=== PATIENT | female | born 1995 | race Caucasian/White ===

== ENCOUNTER → 2020-09-27 | Outpatient (REF) | payer BC | LOC: M LAB REF 12:12 | PROVIDERS: ATTEND Physician Assistant | DX: N39.0 Urinary tract infection, site not specified (principal) ==

== ENCOUNTER → 2020-10-12 | Outpatient (CLI) | payer BC | LOC: M LAB 15:36 | PROVIDERS: ATTEND Student in an Organized Health Care Education/Training Program | DX: K51.211 Ulcerative (chronic) proctitis with rectal bleeding (principal) ==

== ENCOUNTER → 2020-10-13 | Outpatient (REF) | payer BC | LOC: M LAB REF 12:02 | PROVIDERS: ATTEND Student in an Organized Health Care Education/Training Program | DX: K51.211 Ulcerative (chronic) proctitis with rectal bleeding (principal) ==

== ENCOUNTER → 2021-04-21 | Outpatient (REF) | payer BC | LOC: M LAB REF 09:33 | PROVIDERS: ATTEND Student in an Organized Health Care Education/Training Program | DX: K50.10 Crohn's disease of large intestine without complications (principal); R31.9 Hematuria, unspecified ==

== ENCOUNTER → 2021-04-27 | Outpatient (CLI) | payer BC ==
[2021-04-27 11:18] LABS: BASO # 0.1 10^3/uL (0.0-0.2); BASO % 0.8 % (0.0-1.0); EOS # 0.1 10^3/uL (0.0-0.5); EOS % 1.5 % (0.0-3.0); LYMPH # 2.3 10^3/uL (1.5-5.0); LYMPH % 26.8 % (24.0-44.0); MEAN CORPUSCULAR HEMOGLOBIN 30.2 pg (27.0-33.0); MEAN CORPUSCULAR HGB CONC 33.3 g/dl (32.0-36.5); MEAN CORPUSCULAR VOLUME 90.7 fl (80.0-96.0); MONO # 0.9 10^3/uL (0.0-0.8); NEUTROPHILS # 5.1 10^3/uL (1.5-8.5); NEUTROPHILS % 59.6 % (36.0-66.0); PLATELET COUNT, AUTOMATED 239 10^3/uL (150-450); WHITE BLOOD COUNT 8.6 10^3/uL (4.0-10.0)
[2021-04-27 11:40] LABS: APPEARANCE, URINE CLEAR (CLEAR); BACTERIA, URINE AUTO 2+ (NEGATIVE); BILIRUBIN, URINE AUTO NEGATIVE (NEGATIVE); BLOOD, URINE BLOOD NEGATIVE (NEGATIVE); COLOR, URINE STRAW (YELLOW); GLUCOSE, URINE (UA) AUTO NEGATIVE (NEGATIVE); KETONE, URINE AUTO NEGATIVE (NEGATIVE); LEUKOCYTE ESTERASE, URINE AUTO NEGATIVE (NEGATIVE); NITRITE, URINE AUTO NEGATIVE (NEGATIVE); PROTEIN, URINE AUTO NEGATIVE (NEGATIVE); RBC, URINE AUTO 1 /HPF (0-3); SPECIFIC GRAVITY URINE AUTO 1.005 (1.002-1.035); SQUAMOUS EPITHELIAL CELL UR AU 2 /HPF (0-6); UROBILINOGEN, URINE AUTO 0.2 mg/dL (0.0-2.0); WBC, URINE AUTO 1 /HPF (0-3)
[2021-04-27 11:43] LABS: ERYTHROCYTE SEDIMENTATION RATE 1 mm/hr (0-20)
[2021-04-27 11:44] LABS: ALBUMIN 3.5 GM/DL (3.2-5.2); ALT/SGPT 22 U/L (12-78); BILIRUBIN,DIRECT 0.2 MG/DL (0.0-0.2); BILIRUBIN,TOTAL 0.5 MG/DL (0.2-1.0); BLOOD UREA NITROGEN 9 MG/DL (7-18); C REACTIVE PROTEIN QUANTITATIV < 0.30 MG/DL (0.00-0.30); CREATININE FOR GFR 0.86 MG/DL (0.55-1.30); FERRITIN 11 NG/ML (8-252); GLOMERULAR FILTRATION RATE > 60.0 (>60); IRON (FE) 104 UG/DL (50-170); PERCENT SATURATION 29.3 % (13.2-45.0); THYROID STIMULATING HORMONE 0.652 uIU/ML (0.358-3.740); TOTAL IRON BINDING CAPACITY 355 UG/DL (250-450); TOTAL PROTEIN 6.6 GM/DL (6.4-8.2)
[2021-04-27 11:45] LABS: TOTAL 25(OH) VITAMIN D 44.2 NG/ML (30.0-100.0); VITAMIN B12 LEVEL 506 PG/ML (247-911)
== END ==
LOC: M LAB 10:15
PROVIDERS: ATTEND Student in an Organized Health Care Education/Training Program
DX: K50.10 Crohn's disease of large intestine without complications (principal); K62.5 Hemorrhage of anus and rectum

== ENCOUNTER → 2021-05-19 | Outpatient (CLI) | payer BC ==
[~2021-05-19] MED LIST: GASTROGRAFIN SOLUTION 30ML (Q9963) As Ordered ONE; ISOVUE-370 76% 100ML VIAL As Ordered ONE
[2021-05-19 10:55] LABS: HEMATOCRIT 38.9 % (36.0-47.0); HEMOGLOBIN 12.9 g/dl (12.0-15.5); MEAN CORPUSCULAR HEMOGLOBIN 30.4 pg (27.0-33.0); MEAN CORPUSCULAR VOLUME 91.5 fl (80.0-96.0); RED BLOOD COUNT 4.25 10^6/uL (4.00-5.40); WHITE BLOOD COUNT 6.6 10^3/uL (4.0-10.0)
[2021-05-19 10:56] LABS: BASO # 0.1 10^3/uL (0.0-0.2); BASO % 1.1 % (0.0-1.0); EOS # 0.1 10^3/uL (0.0-0.5); EOS % 1.8 % (0.0-3.0); LYMPH % 30.2 % (24.0-44.0); MEAN CORPUSCULAR HGB CONC 33.2 g/dl (32.0-36.5); MONO # 0.7 10^3/uL (0.0-0.8); MONO % 10.9 % (2.0-8.0); NEUTROPHILS # 3.7 10^3/uL (1.5-8.5); NEUTROPHILS % 55.7 % (36.0-66.0); PLATELET COUNT, AUTOMATED 252 10^3/uL (150-450)
[2021-05-19 11:41] LABS: ERYTHROCYTE SEDIMENTATION RATE 3 mm/hr (0-20)
--- NOTE | 2021-05-19 12:48 | REP ---
INDICATION: RECTAL BLEEDING, LOWER ABD PAIN *LABS 1ST, CT 2ND*. COMPARISON: None. TECHNIQUE: Helical scanning is acquired and 3 mm axial images re-formatted. Coronal and sagittal MPR images are generated. The CT contrast enhancement dose is 100 mL of intravenous Isovue 370. Oral contrast was also administered. FINDINGS: Preliminary digital grounding engineer radiograph is noncontributory. The lung bases are clear on axial CT images. There is no evidence of pleural effusion or upper abdominal ascites. The liver and the spleen are normal in size homogeneous in texture. Normal adrenal glands are observed bilaterally. No abnormality is noted in the pancreas or the gallbladder. The kidneys enhance symmetrically and are morphologically intact. No retroperitoneal mass or adenopathy is seen. Small and large bowel loops are noted to be well opacified with a ingested contrast material and unremarkable. No obstructive lesion is seen. No mass or mural thickening is observed. A normal appear filled appendix is seen along the right pelvic sidewall. No uterine or ovarian abnormality is seen. A small quantity of physiologic fluid is seen in the cul-de-sac. Urinary bladder is unremarkable. No abdominal wall defect is seen. Bone window settings show no bony destructive lesion. IMPRESSION: Normal CT study of the abdomen and pelvis with IV and oral contrast. Normal appendix seen. <Electronically signed by Mitchel Cotton > 05/19/21 [id number]
== END ==
LOC: M RAD 10:13 → M LAB 10:13
PROVIDERS: ATTEND Nurse Practitioner Family
DX: K62.5 Hemorrhage of anus and rectum (principal); R10.30 Lower abdominal pain, unspecified; K50.10 Crohn's disease of large intestine without complications
CPT/HCPCS: 36415; 74177; 85025; 85652; 86140; Q9963; Q9967

== ENCOUNTER → 2021-08-30 | Outpatient (REF) | payer OTHER | LOC: M LAB REF 12:13 | PROVIDERS: ATTEND Student in an Organized Health Care Education/Training Program | DX: K50.10 Crohn's disease of large intestine without complications (principal); K62.5 Hemorrhage of anus and rectum ==

== ENCOUNTER → 2021-10-06 | Outpatient (REF) | payer OTHER ==
[2021-10-06 17:27] LABS: APPEARANCE, URINE CLEAR (CLEAR); BACTERIA, URINE AUTO NEGATIVE (NEGATIVE); BILIRUBIN, URINE AUTO NEGATIVE (NEGATIVE); BLOOD, URINE BLOOD NEGATIVE (NEGATIVE); COLOR, URINE YELLOW (YELLOW); GLUCOSE, URINE (UA) AUTO NEGATIVE (NEGATIVE); KETONE, URINE AUTO NEGATIVE (NEGATIVE); LEUKOCYTE ESTERASE, URINE AUTO NEGATIVE (NEGATIVE); NITRITE, URINE AUTO NEGATIVE (NEGATIVE); PROTEIN, URINE AUTO NEGATIVE (NEGATIVE); RBC, URINE AUTO 0 /HPF (0-3); SPECIFIC GRAVITY URINE AUTO 1.012 (1.002-1.035); SQUAMOUS EPITHELIAL CELL UR AU 0 /HPF (0-6); UROBILINOGEN, URINE AUTO 0.2 mg/dL (0.0-2.0); WBC, URINE AUTO 0 /HPF (0-3)
== END ==
LOC: M LAB REF 16:30
PROVIDERS: ATTEND Physician Assistant
DX: R30.0 Dysuria (principal)

== ENCOUNTER → 2022-01-22 | Outpatient (CLI) | payer OTHER ==
[2022-01-22 15:09] LABS: BASO # 0.1 10^3/uL (0.0-0.2); BASO % 0.8 % (0.0-1.0); EOS # 0.1 10^3/uL (0.0-0.5); EOS % 1.3 % (0.0-3.0); HEMATOCRIT 40.5 % (36.0-47.0); HEMOGLOBIN 13.4 g/dl (12.0-15.5); LYMPH # 3.1 10^3/uL (1.5-5.0); LYMPH % 32.9 % (24.0-44.0); MEAN CORPUSCULAR HEMOGLOBIN 29.8 pg (27.0-33.0); MEAN CORPUSCULAR HGB CONC 33.1 g/dl (32.0-36.5); MONO # 0.9 10^3/uL (0.0-0.8); MONO % 9.4 % (2.0-8.0); NEUTROPHILS # 5.2 10^3/uL (1.5-8.5); NEUTROPHILS % 55.4 % (36.0-66.0); PLATELET COUNT, AUTOMATED 244 10^3/uL (150-450); WHITE BLOOD COUNT 9.3 10^3/uL (4.0-10.0)
[2022-01-22 15:41] LABS: ALBUMIN 4.1 GM/DL (3.2-5.2); ALT/SGPT 28 U/L (12-78); BILIRUBIN,DIRECT 0.1 MG/DL (0.0-0.2); BILIRUBIN,TOTAL 0.4 MG/DL (0.2-1.0); C REACTIVE PROTEIN QUANTITATIV < 0.30 MG/DL (0.00-0.30); FERRITIN 18 NG/ML (8-252); IRON (FE) 104 UG/DL (50-170); TOTAL PROTEIN 7.2 GM/DL (6.4-8.2)
[2022-01-22 15:44] LABS: TOTAL 25(OH) VITAMIN D 55.6 NG/ML (30.0-100.0)
[2022-01-22 15:45] LABS: ERYTHROCYTE SEDIMENTATION RATE 4 mm/hr (0-20); HEPATITIS B SURFACE ANTIBODY NEGATIVE (POSITIVE); VITAMIN B12 LEVEL 481 PG/ML (247-911)
[2022-01-22 15:55] LABS: HEPATITIS B SURFACE ANTIGEN NEGATIVE (NEGATIVE)
[2022-01-22 16:23] LABS: HEPATITIS C VIRUS ABY INDEX 0.2 INDEX (<0.8)
== END ==
LOC: M LAB 14:11
PROVIDERS: ATTEND Student in an Organized Health Care Education/Training Program
DX: K50.10 Crohn's disease of large intestine without complications (principal)

== ENCOUNTER → 2022-01-26 | Outpatient (REF) | payer OTHER | LOC: M LAB REF 09:42 | PROVIDERS: ATTEND Student in an Organized Health Care Education/Training Program | DX: K50.10 Crohn's disease of large intestine without complications (principal) ==

== ENCOUNTER 2022-03-11 11:08 | Emergency (ER) | payer OTHER ==
[~2022-03-11] VITALS: Ht 162.6 cm; Wt 60.1 kg
[2022-03-11] MEDS ORDERED: MESA1000 PR (11:15)
[2022-03-11] MEDS ORDERED: MESA400C2 PO (11:15)
[2022-03-11 12:01] LABS: BASO # 0.1 10^3/uL (0.0-0.2); BASO % 0.5 % (0.0-1.0); EOS % 0.2 % (0.0-3.0); HEMATOCRIT 38.3 % (36.0-47.0); HEMOGLOBIN 12.9 g/dl (12.0-15.5); LYMPH # 2.1 10^3/uL (1.5-5.0); LYMPH % 22.9 % (24.0-44.0); MEAN CORPUSCULAR HEMOGLOBIN 30.4 pg (27.0-33.0); MEAN CORPUSCULAR HGB CONC 33.7 g/dl (32.0-36.5); MEAN CORPUSCULAR VOLUME 90.3 fl (80.0-96.0); MONO # 0.7 10^3/uL (0.0-0.8); NEUTROPHILS # 6.3 10^3/uL (1.5-8.5); NEUTROPHILS % 68.2 % (36.0-66.0); PLATELET COUNT, AUTOMATED 265 10^3/uL (150-450); RED BLOOD COUNT 4.24 10^6/uL (4.00-5.40); WHITE BLOOD COUNT 9.2 10^3/uL (4.0-10.0)
[2022-03-11] MEDS ORDERED: NS 1,000 ML IV ONE (12:10)
[2022-03-11] MEDS ORDERED: KETOROLAC 30 MG/ML 1ML VIAL IV ONE (12:10)
[2022-03-11] MEDS ORDERED: methylPREDNISolone 125MG 2ML VIAL IV ONE (12:10)
[2022-03-11] MEDS ORDERED: ISOVUE-370 76% 100ML VIAL As Ordered ONE (12:22)
[2022-03-11 12:30] LABS: ALBUMIN 3.8 GM/DL (3.2-5.2); BILIRUBIN,DIRECT 0.1 MG/DL (0.0-0.2); BILIRUBIN,TOTAL 0.5 MG/DL (0.2-1.0); TOTAL PROTEIN 7.1 GM/DL (6.4-8.2)
[2022-03-11] MEDS ORDERED: MEDR4PAK PO (15:00)
[2022-03-11] MEDS ORDERED: LOMO2.5T PO (15:00)
[2022-03-11 15:11] VITALS: BP 115/59
== END 2022-03-11 15:19 | disposition home or self-care (01) ==
LOC: M ED 11:08
DX: K50.919 Crohn's disease, unspecified, with unspecified complications (principal); Z88.0 Allergy status to penicillin
CPT/HCPCS: 74177; 80047; 80076; 81001; 83605; 83690; 84702; 85025; 96361; 96374; 96375; 99284; J1885; J2930; Q9967

== ENCOUNTER → 2022-03-28 | Outpatient (REF) | payer OTHER ==
[~2022-03-28] MED LIST changes: -GASTROGRAFIN SOLUTION 30ML (Q9963) As Ordered ONE; -ISOVUE-370 76% 100ML VIAL As Ordered ONE; +LOMO2.5T PO; +MEDR4PAK PO; +MESA1000 PR; +MESA400C2 PO
== END ==
LOC: M LAB REF 12:03
PROVIDERS: ATTEND Student in an Organized Health Care Education/Training Program
DX: K50.10 Crohn's disease of large intestine without complications (principal); R19.7 Diarrhea, unspecified

== ENCOUNTER 2022-09-12 09:42 | Outpatient (CLI) | payer OTHER ==
[~2022-09-12] VITALS: Ht 162.6 cm; Wt 59.1 kg
[2022-09-12 09:55] VITALS: BP 133/100
[2022-09-12] MEDS ORDERED: VEDOLIZUMAB 300 MG in NS 250 ML IV ONE (10:00)
[2022-09-12 11:29] VITALS: BP 123/79
== END 2022-09-12 11:55 | disposition home or self-care (01) ==
LOC: M INFU 09:42
PROVIDERS: ATTEND Student in an Organized Health Care Education/Training Program
DX: K50.10 Crohn's disease of large intestine without complications (principal); Z88.0 Allergy status to penicillin; Z88.1 Allergy status to other antibiotic agents
CPT/HCPCS: 96365; J3380

== ENCOUNTER 2022-09-26 09:00 | Outpatient (CLI) | payer OTHER ==
[~2022-09-26] VITALS: Ht 162.6 cm; Wt 60.0 kg
[2022-09-26 09:00] VITALS: BP 118/75
[~2022-09-26 09:00] MED LIST changes: +VEDOLIZUMAB 300 MG in NS 250 ML IV ONE
[2022-09-26 10:08] VITALS: BP 116/70
== END 2022-09-26 10:10 | disposition home or self-care (01) ==
LOC: M INFU 09:00
PROVIDERS: ATTEND Student in an Organized Health Care Education/Training Program
DX: K50.10 Crohn's disease of large intestine without complications (principal); Z88.0 Allergy status to penicillin
CPT/HCPCS: 96365; J3380

== ENCOUNTER 2022-10-25 10:55 | Outpatient (CLI) | payer OTHER ==
[~2022-10-25] VITALS: Ht 162.6 cm; Wt 60.0 kg
[~2022-10-25 10:55] MED LIST changes: -VEDOLIZUMAB 300 MG in NS 250 ML IV ONE
[2022-10-25] MEDS ORDERED: VEDOLIZUMAB 300 MG in NS 250 ML IV ONE (11:00)
[2022-10-25 11:06] VITALS: BP 130/72
[2022-10-25 12:15] VITALS: BP 135/75
== END 2022-10-25 12:10 | disposition home or self-care (01) ==
LOC: M INFU 10:55
PROVIDERS: ATTEND Student in an Organized Health Care Education/Training Program
DX: K50.10 Crohn's disease of large intestine without complications (principal); Z88.0 Allergy status to penicillin
CPT/HCPCS: 96365; J3380

== ENCOUNTER → 2022-11-08 | Outpatient (REF) | payer OTHER | LOC: M LAB REF 11:50 | PROVIDERS: ATTEND Nurse Practitioner Family | DX: K50.10 Crohn's disease of large intestine without complications (principal) ==

== ENCOUNTER 2022-12-19 09:56 | Outpatient (CLI) | payer OTHER ==
[~2022-12-19] VITALS: Ht 162.6 cm; Wt 60.0 kg
[2022-12-19 10:00] VITALS: BP 118/62
[2022-12-19] MEDS ORDERED: VEDOLIZUMAB 300 MG in NS 250 ML IV ONE (10:00)
[2022-12-19 11:16] VITALS: BP 105/62
== END 2022-12-19 11:10 | disposition home or self-care (01) ==
LOC: M INFU 09:56
PROVIDERS: ATTEND Student in an Organized Health Care Education/Training Program
DX: K50.10 Crohn's disease of large intestine without complications (principal); Z88.0 Allergy status to penicillin
CPT/HCPCS: 96365; J3380

== ENCOUNTER 2023-02-13 10:00 | Outpatient (CLI) | payer OTHER ==
[~2023-02-13] VITALS: Ht 162.6 cm; Wt 60.0 kg
[2023-02-13 10:00] VITALS: BP 122/72
[~2023-02-13 10:00] MED LIST changes: +VEDOLIZUMAB 300 MG in NS 250 ML IV ONE
[2023-02-13 11:39] VITALS: BP 114/61
== END 2023-02-13 11:45 | disposition home or self-care (01) ==
LOC: M INFU 10:00
PROVIDERS: ATTEND Student in an Organized Health Care Education/Training Program
DX: K50.10 Crohn's disease of large intestine without complications (principal); Z88.0 Allergy status to penicillin
CPT/HCPCS: 96365; J3380

== ENCOUNTER → 2023-03-05 | Outpatient (REF) | payer OTHER ==
[~2023-03-05] MED LIST changes: -VEDOLIZUMAB 300 MG in NS 250 ML IV ONE
== END ==
LOC: M LAB REF 10:47
PROVIDERS: ATTEND Internal Medicine
DX: K50.10 Crohn's disease of large intestine without complications (principal)

== ENCOUNTER 2023-06-05 09:50 | Outpatient (CLI) | payer OTHER ==
[~2023-06-05] VITALS: Ht 162.6 cm; Wt 58.6 kg
[2023-06-05 09:50] VITALS: BP 118/58; O2SAT 100
[2023-06-05] MEDS ORDERED: VEDOLIZUMAB 300 MG in NS 250 ML IV ONE (10:00)
[2023-06-05 11:10] VITALS: BP 117/73; O2SAT 100
== END 2023-06-05 11:10 | disposition home or self-care (01) ==
LOC: M INFU 09:50
PROVIDERS: ATTEND Student in an Organized Health Care Education/Training Program
DX: K50.10 Crohn's disease of large intestine without complications (principal); Z88.0 Allergy status to penicillin
CPT/HCPCS: 96365; J3380

== ENCOUNTER 2023-09-25 10:05 | Outpatient (CLI) | payer OTHER ==
[~2023-09-25] VITALS: Ht 162.6 cm; Wt 57.7 kg
[2023-09-25 10:05] VITALS: BP 124/66; O2SAT 97
[~2023-09-25 10:05] MED LIST changes: +VEDOLIZUMAB 300 MG in NS 250 ML IV ONE
[2023-09-25 11:30] VITALS: BP 106/63; O2SAT 96
== END 2023-09-25 11:30 ==
LOC: M INFU 10:05
PROVIDERS: ATTEND Student in an Organized Health Care Education/Training Program
DX: K50.10 Crohn's disease of large intestine without complications (principal); Z88.0 Allergy status to penicillin
CPT/HCPCS: 96365; J3380

== ENCOUNTER 2023-11-20 10:02 | Outpatient (CLI) | payer OTHER ==
[~2023-11-20] VITALS: Ht 162.6 cm; Wt 65.0 kg
[2023-11-20 10:10] VITALS: BP 114/67; O2SAT 100
[2023-11-20 11:35] VITALS: BP 113/62; O2SAT 100
== END 2023-11-20 14:25 | disposition home or self-care (01) ==
LOC: M INFU 10:02
PROVIDERS: ATTEND Student in an Organized Health Care Education/Training Program
DX: K50.10 Crohn's disease of large intestine without complications (principal); Z88.0 Allergy status to penicillin
CPT/HCPCS: 96365; J3380

== ENCOUNTER 2024-02-07 12:40 | Outpatient (CLI) | payer OTHER ==
[~2024-02-07] VITALS: Ht 162.6 cm; Wt 59.0 kg
[~2024-02-07 12:40] MED LIST changes: -VEDOLIZUMAB 300 MG in NS 250 ML IV ONE
[2024-02-07 12:45] VITALS: BP 139/60; O2SAT 100
[2024-02-07] MEDS: VEDOLIZUMAB 300 MG in NS 250 ML IV ONE (13:09)
[2024-02-07 13:48] VITALS: BP 141/85; O2SAT 100
== END 2024-02-07 13:47 ==
LOC: M INFU 12:40
PROVIDERS: ATTEND Student in an Organized Health Care Education/Training Program
DX: K50.10 Crohn's disease of large intestine without complications (principal); Z88.0 Allergy status to penicillin
CPT/HCPCS: 96365; J3380

== ENCOUNTER 2024-04-03 07:00 | Outpatient (CLI) | payer OTHER ==
[~2024-04-03] VITALS: Ht 165.1 cm; Wt 58.1 kg
[2024-04-03 06:59] VITALS: BP 114/63; O2SAT 100
[2024-04-03 07:05] VITALS: BP 114/63; TEMP 97.8; O2SAT 100
[2024-04-03] MEDS: VEDOLIZUMAB 300 MG in NS 250 ML IV ONE (07:22)
[2024-04-03 08:00] VITALS: BP 106/59; O2SAT 100
== END 2024-04-03 08:00 | disposition home or self-care (01) ==
LOC: M INFU 07:00
PROVIDERS: ATTEND Student in an Organized Health Care Education/Training Program
DX: K50.10 Crohn's disease of large intestine without complications (principal); Z88.0 Allergy status to penicillin
CPT/HCPCS: 96365; J3380

== ENCOUNTER 2024-05-29 12:37 | Outpatient (CLI) | payer OTHER ==
[~2024-05-29] VITALS: Ht 162.6 cm; Wt 59.1 kg
[2024-05-29 12:55] VITALS: BP 126/61; O2SAT 100
[2024-05-29] MEDS: VEDOLIZUMAB 300 MG in NS 250 ML IV ONE (13:28)
[2024-05-29 14:09] VITALS: BP 103/59; O2SAT 100
== END 2024-05-29 14:10 ==
LOC: M INFU 12:37
PROVIDERS: ATTEND Student in an Organized Health Care Education/Training Program
DX: K50.10 Crohn's disease of large intestine without complications (principal); Z88.0 Allergy status to penicillin
CPT/HCPCS: 96365; J3380

== ENCOUNTER → 2024-07-17 | Outpatient (CLI) | payer OTHER ==
[2024-07-17 11:44] LABS: HEMATOCRIT 38.5 % (36.0-47.0); HEMOGLOBIN 13.2 g/dl (12.0-15.5); MEAN CORPUSCULAR HEMOGLOBIN 30.6 pg (27.0-33.0); MEAN CORPUSCULAR HGB CONC 34.3 g/dl (32.0-36.5); MEAN CORPUSCULAR VOLUME 89.3 fl (80.0-96.0); PLATELET COUNT, AUTOMATED 224 10^3/uL (150-450); RED BLOOD COUNT 4.31 10^6/uL (4.00-5.40); WHITE BLOOD COUNT 7.3 10^3/uL (4.0-10.0)
[2024-07-17 12:09] LABS: ALBUMIN 3.9 G/DL (3.2-5.2); ALKALINE PHOSPHATASE 59 U/L (46-116); ALT/SGPT 22 U/L (7.0-40); AST/SGOT 19 U/L (<34); BILIRUBIN,DIRECT 0.3 MG/DL (<0.4); BILIRUBIN,TOTAL 0.9 MG/DL (0.3-1.2); BLOOD UREA NITROGEN 14 MG/DL (9-23); CALCIUM LEVEL 9.7 MG/DL (8.5-10.1); CARBON DIOXIDE LEVEL 26 MMOL/L (20-31); CHLORIDE LEVEL 108 MMOL/L (98-107); CREATININE FOR GFR 0.94 MG/DL (0.55-1.30); GLOMERULAR FILTRATION RATE > 60.0 (>60); GLUCOSE, FASTING 83 MG/DL (60-100); IRON (FE) 115 UG/DL (50-170); PERCENT SATURATION 32.5 % (13.2-45.0); POTASSIUM SERUM 4.5 MMOL/L (3.5-5.1); SODIUM LEVEL 139 MMOL/L (136-145); TOTAL IRON BINDING CAPACITY 354 UG/DL (250-425); TOTAL PROTEIN 6.8 G/DL (5.7-8.2)
[2024-07-17 12:11] LABS: FERRITIN 19.8 NG/ML (7.3-270.7); TOTAL 25(OH) VITAMIN D 50.9 NG/ML (20.0-100.0); VITAMIN B12 LEVEL 727 PG/ML (211-911)
[2024-07-21 12:41] LABS: QuantiFERON-TB Gold Plus NEGATIVE (NEGATIVE)
== END ==
LOC: M LAB 11:01
PROVIDERS: ATTEND Student in an Organized Health Care Education/Training Program
DX: K50.10 Crohn's disease of large intestine without complications (principal)

== ENCOUNTER 2024-07-24 12:55 | Outpatient (CLI) | payer OTHER ==
[~2024-07-24] VITALS: Ht 162.6 cm; Wt 59.0 kg
[2024-07-24 12:55] VITALS: BP 112/59; O2SAT 96
[2024-07-24] MEDS: VEDOLIZUMAB 300 MG in NS 250 ML IV ONE (13:26)
[2024-07-24 14:05] VITALS: BP 116/73; O2SAT 95
== END 2024-07-24 14:10 ==
LOC: M INFU 12:55
PROVIDERS: ATTEND Student in an Organized Health Care Education/Training Program
DX: K50.10 Crohn's disease of large intestine without complications (principal); Z88.0 Allergy status to penicillin
CPT/HCPCS: 96365; J3380

== ENCOUNTER 2024-09-18 08:59 | Outpatient (CLI) | payer OTHER ==
[~2024-09-18] VITALS: Ht 162.6 cm; Wt 59.0 kg
[2024-09-18 09:15] VITALS: BP 118/71; O2SAT 100
[2024-09-18] MEDS: VEDOLIZUMAB 300 MG in NS 250 ML IV ONE (10:25)
[2024-09-18 11:00] VITALS: BP 116/74; O2SAT 100
== END 2024-09-18 11:00 ==
LOC: M INFU 08:59
PROVIDERS: ATTEND Student in an Organized Health Care Education/Training Program
DX: K50.10 Crohn's disease of large intestine without complications (principal); Z88.0 Allergy status to penicillin
CPT/HCPCS: 96413; J3380

== ENCOUNTER → 2024-09-29 | Outpatient (CLI) | payer OTHER ==
[~2024-09-29] MED LIST changes: +ISOVUE-370 76% 100ML VIAL As Ordered ONE
== END ==
LOC: M RADPRO 11:11
PROVIDERS: ATTEND Obstetrics & Gynecology
DX: Z31.9 Encounter for procreative management, unspecified (principal)
CPT/HCPCS: 58340; 74740; Q9967

== ENCOUNTER → 2024-10-27 | Outpatient (CLI) | payer OTHER ==
[~2024-10-27] MED LIST changes: -ISOVUE-370 76% 100ML VIAL As Ordered ONE
[2024-10-27 10:03] LABS: LUTEINIZING HORMONE 6.3 mIU/ML; THYROID STIMULATING HORMONE 0.626 uIU/ML (0.55-4.78)
[2024-10-27 10:04] LABS: ESTRADIOL 39.1 PG/ML; FOLLICLE STIMULATING HORMONE 7.1 mIU/ML; PROLACTIN 9.63 NG/ML
[2024-10-27 10:05] LABS: FREE T4 1.04 NG/DL (0.89-1.76); PROGESTERONE 0.65 NG/ML
[2024-10-30 15:28] LABS: ANTI MULLERIAN HORMONE 2.15 ng/mL (0.36-10.07)
[2024-11-01 17:02] LABS: TESTOSTERONE FREE (DIRECT) 1.7 pg/mL (0.1-6.4)
== END ==
LOC: M LAB 09:07
PROVIDERS: ATTEND Obstetrics & Gynecology
DX: Z31.9 Encounter for procreative management, unspecified (principal)

== ENCOUNTER 2024-11-13 08:51 | Outpatient (CLI) | payer OTHER ==
[~2024-11-13] VITALS: Ht 162.6 cm; Wt 59.1 kg
[2024-11-13 08:50] VITALS: BP 118/63; O2SAT 100
[2024-11-13] MEDS: VEDOLIZUMAB 300 MG in NS 250 ML IV ONE (09:15)
[2024-11-13 09:49] VITALS: BP 117/73; O2SAT 100
== END 2024-11-13 10:55 ==
LOC: M INFU 08:51
PROVIDERS: ATTEND Student in an Organized Health Care Education/Training Program
DX: K50.10 Crohn's disease of large intestine without complications (principal); Z88.0 Allergy status to penicillin; Z88.1 Allergy status to other antibiotic agents
CPT/HCPCS: 96365; J3380

== ENCOUNTER → 2024-12-09 | Outpatient (CLI) | payer OTHER | LOC: M LAB 12:19 | PROVIDERS: ATTEND Obstetrics & Gynecology | DX: Z31.9 Encounter for procreative management, unspecified (principal) ==

== ENCOUNTER 2025-01-08 09:00 | Outpatient (CLI) | payer OTHER ==
[~2025-01-08] VITALS: Ht 162.6 cm; Wt 59.0 kg
[2025-01-08 09:00] VITALS: BP 122/69; O2SAT 99
[2025-01-08] MEDS: VEDOLIZUMAB 300 MG in NS 250 ML IV ONE (09:36)
[2025-01-08 10:10] VITALS: BP 105/65; O2SAT 100
== END 2025-01-08 10:15 ==
LOC: M INFU 09:00
PROVIDERS: ATTEND Student in an Organized Health Care Education/Training Program
DX: K50.10 Crohn's disease of large intestine without complications (principal); Z88.0 Allergy status to penicillin
CPT/HCPCS: 96413; J3380

== ENCOUNTER 2025-03-05 16:00 | Outpatient (CLI) | payer OTHER ==
[~2025-03-05] VITALS: Ht 162.6 cm; Wt 59.0 kg
[2025-03-05 16:00] VITALS: BP 114/78; O2SAT 100
[2025-03-05] MEDS: VEDOLIZUMAB 300 MG in NS 250 ML IV ONE (16:45)
[2025-03-05 17:22] VITALS: BP 122/71; O2SAT 100
== END 2025-03-05 17:23 | disposition home or self-care (01) ==
LOC: M INFU 16:00
PROVIDERS: ATTEND Student in an Organized Health Care Education/Training Program
DX: K50.10 Crohn's disease of large intestine without complications (principal); Z88.0 Allergy status to penicillin
CPT/HCPCS: 96413; J3380

== ENCOUNTER → 2025-06-14 | Outpatient (CLI) | payer OTHER | LOC: M LAB 09:00 | PROVIDERS: ATTEND Obstetrics & Gynecology | DX: Z31.9 Encounter for procreative management, unspecified (principal) ==

== ENCOUNTER → 2025-06-14 | Outpatient (REF) | payer OTHER | LOC: M PLALAB 08:32 | PROVIDERS: ATTEND Obstetrics & Gynecology | DX: Z31.9 Encounter for procreative management, unspecified (principal) ==

== ENCOUNTER → 2025-06-16 | Outpatient (CLI) | payer OTHER | LOC: M LAB 09:33 | PROVIDERS: ATTEND Obstetrics & Gynecology | DX: Z31.9 Encounter for procreative management, unspecified (principal) ==

== ENCOUNTER 2025-06-25 11:39 | Outpatient (CLI) | payer OTHER ==
[~2025-06-25] VITALS: Ht 162.6 cm; Wt 59.1 kg
[2025-06-25 12:00] VITALS: BP 143/59; O2SAT 100
[2025-06-25] MEDS: VEDOLIZUMAB 300 MG in NS 250 ML IV ONE (12:40)
[2025-06-25 13:20] VITALS: BP 114/69; O2SAT 100
== END 2025-06-25 13:25 ==
LOC: M INFU 11:39
PROVIDERS: ATTEND Student in an Organized Health Care Education/Training Program
DX: K50.10 Crohn's disease of large intestine without complications (principal); Z88.0 Allergy status to penicillin
CPT/HCPCS: 96413; J3380

== ENCOUNTER → 2025-07-19 | Outpatient (CLI) | payer OTHER ==
[2025-07-19 13:07] LABS: PLATELET COUNT, AUTOMATED 253 10^3/uL (150-450)
[2025-07-19 13:09] LABS: ALT/SGPT 25.0 U/L (7.0-40); AST/SGOT 24.0 U/L (<34); CALCIUM LEVEL 9.0 MG/DL (8.5-10.1); CARBON DIOXIDE LEVEL 26.0 MMOL/L (20-31); CHLORIDE LEVEL 108.0 MMOL/L (98-107); CREATININE FOR GFR 1.05 MG/DL (0.55-1.30); GLOMERULAR FILTRATION RATE 72.4 (>60); IRON (FE) 87.0 UG/DL (50-170); PERCENT SATURATION 23.8 % (13.2-45.0); POTASSIUM SERUM 4.5 MMOL/L (3.5-5.1); SODIUM LEVEL 137.0 MMOL/L (136-145)
[2025-07-19 13:11] LABS: TOTAL 25(OH) VITAMIN D 48.4 NG/ML (20.0-100.0)
[2025-07-19 13:12] LABS: VITAMIN B12 LEVEL 500.0 PG/ML (211-911)
== END ==
LOC: M WUC 10:12
PROVIDERS: ATTEND Physician Assistant Surgical
DX: Z79.899 Other long term (current) drug therapy (principal); K50.10 Crohn's disease of large intestine without complications

== ENCOUNTER 2025-07-30 09:46 | Emergency (ER) | payer OTHER ==
[~2025-07-30] VITALS: Ht 162.6 cm; Wt 67.1 kg
[2025-07-30] MEDS ORDERED: CLOM50TA28 (10:04)
[2025-07-30] MEDS: NEOSPORIN OINT 0.9 GM PKT TOP ONE (11:25)
[2025-07-30] MEDS: LIDOCAINE 1% MDV 20 ML VIAL SC ONE (11:25)
[2025-07-30 11:56] VITALS: BP 102/57; TEMP 97.6; O2SAT 98
== END 2025-07-30 12:06 | disposition home or self-care (01) ==
LOC: M ED 09:46
DX: S61.212A Laceration without foreign body of right middle finger without damage to nail, initial encounter (principal); W26.0XXA Contact with knife, initial encounter; Y92.9 Unspecified place or not applicable; Y93.9 Activity, unspecified; Y99.0 Civilian activity done for income or pay; Z87.19 Personal history of other diseases of the digestive system; Z88.0 Allergy status to penicillin

== ENCOUNTER → 2025-08-02 | Outpatient (REF) | payer OTHER ==
[~2025-08-02] MED LIST changes: +CLOM50TA28
[2025-08-02 18:41] LABS: HCG, SERUM QUANTITATIVE 156.2 MIU/ML (<4.2)
[2025-08-02 18:55] LABS: HCG, SERUM QUALITATIVE POSITIVE (NEGATIVE)
== END ==
LOC: M LAB REF 17:08
PROVIDERS: ATTEND Physician Assistant Medical
DX: Z32.00 Encounter for pregnancy test, result unknown (principal)

== ENCOUNTER → 2025-08-03 | Outpatient (CLI) | payer OTHER ==
[2025-08-03 10:10] LABS: HCG, SERUM QUANTITATIVE 268.8 MIU/ML (<4.2)
[2025-08-03 10:14] LABS: ESTRADIOL 536.0 PG/ML; PROGESTERONE 6.1 NG/ML
== END ==
LOC: M LAB 08:55
PROVIDERS: ATTEND Obstetrics & Gynecology Reproductive Endocrinology
DX: Z32.00 Encounter for pregnancy test, result unknown (principal)

== ENCOUNTER → 2025-08-05 | Outpatient (CLI) | payer OTHER ==
[2025-08-05 07:05] LABS: HCG, SERUM QUANTITATIVE 595.1 MIU/ML (<4.2)
[2025-08-05 07:09] LABS: ESTRADIOL 349.7 PG/ML; PROGESTERONE 15.36 NG/ML
== END ==
LOC: M LAB 06:16
PROVIDERS: ATTEND Obstetrics & Gynecology Reproductive Endocrinology
DX: Z32.01 Encounter for pregnancy test, result positive (principal)

== ENCOUNTER → 2025-08-08 | Outpatient (CLI) | payer OTHER | LOC: M LAB 08:55 | PROVIDERS: ATTEND Obstetrics & Gynecology | DX: Z31.9 Encounter for procreative management, unspecified (principal) ==

== ENCOUNTER 2025-08-09 15:32 | Emergency (ER) | payer OTHER ==
[~2025-08-09] VITALS: Ht 162.6 cm; Wt 58.8 kg
[2025-08-09 18:41] LABS: BASO # 0.1 10^3/uL (0.0-0.2); BASO % 0.7 % (0.0-1.0); EOS # 0.1 10^3/uL (0.0-0.5); EOS % 1.0 % (0.0-3.0); LYMPH # 3.9 10^3/uL (1.5-5.0); LYMPH % 33.9 % (24.0-44.0); MONO # 0.9 10^3/uL (0.0-0.8); MONO % 7.8 % (2.0-8.0); NEUTROPHILS # 6.5 10^3/uL (1.5-8.5); NEUTROPHILS % 56.3 % (36.0-66.0); PLATELET COUNT, AUTOMATED 240 10^3/uL (150-450)
[2025-08-09 18:52] LABS: ALT/SGPT 22 U/L (7.0-40); AST/SGOT 21 U/L (<34); CALCIUM LEVEL 9.0 MG/DL (8.5-10.1); CARBON DIOXIDE LEVEL 25 MMOL/L (20-31); CHLORIDE LEVEL 105 MMOL/L (98-107); CREATININE FOR GFR 0.85 MG/DL (0.55-1.30); GLOMERULAR FILTRATION RATE > 90.0 (>60); HCG, SERUM QUANTITATIVE 502.4 MIU/ML (<4.2); POTASSIUM SERUM 3.8 MMOL/L (3.5-5.1); SODIUM LEVEL 139 MMOL/L (136-145)
[2025-08-09] MEDS: METHOTREXATE 50 MG/2 ML VIAL IM ONE (19:55)
[2025-08-09 21:00] VITALS: BP 109/65; O2SAT 100
[2025-08-09 21:04] VITALS: TEMP 98.5
== END 2025-08-09 21:11 | disposition home or self-care (01) ==
LOC: M ED 15:32
DX: O00.102 Left tubal pregnancy without intrauterine pregnancy (principal); Z48.02 Encounter for removal of sutures; K50.90 Crohn's disease, unspecified, without complications; Z79.899 Other long term (current) drug therapy; Z88.0 Allergy status to penicillin; Z3A.00 Weeks of gestation of pregnancy not specified
CPT/HCPCS: 80053; 84702; 85025; 86850; 86900; 86901; 96372; 99284; J9260

== ENCOUNTER → 2025-08-09 | Outpatient (CLI) | payer OTHER ==
[2025-08-09 10:43] LABS: HCG, SERUM QUANTITATIVE 612.7 MIU/ML (<4.2)
[2025-08-09 10:47] LABS: ESTRADIOL 529.5 PG/ML
[2025-08-09 10:48] LABS: PROGESTERONE 25.72 NG/ML
== END ==
LOC: M RAD 09:19
PROVIDERS: ATTEND Obstetrics & Gynecology Reproductive Endocrinology
DX: N97.9 Female infertility, unspecified (principal)

== ENCOUNTER → 2025-08-13 | Outpatient (CLI) | payer OTHER | LOC: M PLALAB 08:14 | PROVIDERS: ATTEND Obstetrics & Gynecology | DX: O00.102 Left tubal pregnancy without intrauterine pregnancy (principal) ==

== ENCOUNTER → 2025-08-16 | Outpatient (CLI) | payer OTHER | LOC: M WUC 11:18 | PROVIDERS: ATTEND Obstetrics & Gynecology | DX: O00.102 Left tubal pregnancy without intrauterine pregnancy (principal) ==

== ENCOUNTER 2025-08-25 08:41 | Outpatient (CLI) | payer OTHER ==
[~2025-08-25] VITALS: Ht 162.6 cm; Wt 60.0 kg
[2025-08-25 09:15] VITALS: BP 127/64; O2SAT 97
[2025-08-25] MEDS: VEDOLIZUMAB 300 MG in NS 250 ML IV ONE (09:51)
[2025-08-25 10:27] VITALS: BP 131/70; O2SAT 96
== END 2025-08-25 10:28 ==
LOC: M INFU 08:41
PROVIDERS: ATTEND Student in an Organized Health Care Education/Training Program
DX: K50.10 Crohn's disease of large intestine without complications (principal); Z88.0 Allergy status to penicillin
CPT/HCPCS: 96413; J3380

== ENCOUNTER → 2025-10-21 | Outpatient (CLI) | payer OTHER ==
[~2025-10-21] VITALS: Ht 162.6 cm; Wt 60.0 kg
[2025-10-21 16:14] VITALS: BP 122/60; O2SAT 100
[2025-10-21] MEDS: VEDOLIZUMAB 300 MG in NS 250 ML IV ONE (16:42)
[2025-10-21 17:26] VITALS: BP 103/63; O2SAT 100
== END ==
LOC: M INFU 15:57
PROVIDERS: ATTEND Student in an Organized Health Care Education/Training Program
DX: K50.10 Crohn's disease of large intestine without complications (principal); Z88.0 Allergy status to penicillin; Z88.1 Allergy status to other antibiotic agents
CPT/HCPCS: 96365; J3380